=== PATIENT | male | born 1965 | race African-American/Black ===

== ENCOUNTER 2017-02-26 16:38 | Emergency (ER) | payer MEDICAID ==
[~2017-02-26] VITALS: Ht 177.8 cm; Wt 73.0 kg
[~2017-02-26 16:38] MED LIST: ASPI-1035 PO; HYDR25TA PO; KEPP500 PO; LISI-604 PO; LISI10TA5 PO; TRAM50TA73 PO
[2017-02-26] MEDS ORDERED: CLONIDINE 0.2MG TABLET PO ONE (17:45)
[2017-02-26] MEDS ORDERED: MORPHINE SULFATE 2 MG/ML CPJ (NOT FOR IM USE) IV ONE (17:45)
[2017-02-26 18:09] LABS: BASOPHILS % 0.6 % (0.0-2.0); EOSINOPHILS % 0.1 % (0.0-5.0); HEMATOCRIT. 49.5 % (42.0-52.0); HEMOGLOBIN. 16.4 g/dL (14.0-18.0); LYMPHOCYTES % 7.4 % (20.0-50.0); MEAN CORPUSCULAR HEMOGLOBIN 30.1 pg (28.0-32.0); MEAN CORPUSCULAR VOLUME 91.1 fL (80.0-94.0); MEAN PLATELET VOLUME 7.8 fl (7.4-10.4); MONOCYTES % 2.6 % (2.0-8.0); NEUTROPHILS % 89.3 % (40.0-76.0); PLATELET 280 x1000/uL (130-400); RED BLOOD CELL COUNT 5.44 mill/uL (4.7-6.1); RED CELL DISTRIBUTION WIDTH 13.8 % (11.6-14.6)
[2017-02-26 18:12] LABS: CHLORIDE 101 mEq/L (98-107); INDEX HEMOLYSI 1 (1-3); INDEX ICTERIC 1 (1-4); INDEX LIPEMIC 1 (1-3)
[2017-02-26 18:20] LABS: ALANINE AMINOTRANSFERASE 29 IU/L (13-61); ALBUMIN 4.5 g/dL (3.4-5.0); ANION GAP 17; CALCIUM 9.1 mg/dL (8.5-10.1); CARBON DIOXIDE 21 mEq/L (21-32); UREA NITROGEN BLOOD 15 mg/dL (7-21); eGFR > 60 mL/min (>60)
[2017-02-26 20:05] LABS: CLARITY URINE CLEAR (CLEAR); COLOR URINE YELLOW (YELLOW); GLUCOSE URINE TRACE (NEGATIVE); KETONES URINE 1+ (NEGATIVE); LEUKOCYTE ESTERASE URINE NEGATIVE (NEGATIVE); NITRITE URINE NEGATIVE (NEGATIVE); OCCULT BLOOD URINE 2+ (NEGATIVE); PH URINE 6.5 (4.5-8.0); PROTEIN URINE 3+ (NEGATIVE); SPECIFIC GRAVITY URINE 1.022 (1.005-1.030); UROBILINOGEN URINE 0.2 E.U./dL (0.2-1.0)
[2017-02-26 20:29] LABS: BACTERIA URINE TRACE; RBC URINE 0-2 /hpf (0-2); SQUAMOUS EPITHELIAL CELL URINE RARE /lpf (RARE/1+); WBC URINE 0-2 /hpf (0-2)
[2017-02-26 20:54] LABS: *AMPHETAMINES SCREEN URINE NEGATIVE (NEGATIVE); *BARBITURATES SCREEN URINE NEGATIVE (NEGATIVE); *BENZODIAZEPINES SCREEN URINE NEGATIVE (NEGATIVE); *COCAINE SCREEN URINE NEGATIVE (NEGATIVE); CANNABINOID URINE SCREEN PRESUMTIVE POSITIVE (NEGATIVE); ECSTASY MDMA SCREEN URINE NEGATIVE (NEGATIVE); METHADONE URINE SCREEN NEGATIVE (NEGATIVE); OPIATES URINE SCREEN PRESUMTIVE POSITIVE (NEGATIVE); PHENCYCLIDINE URINE SCREEN NEGATIVE (NEGATIVE)
[2017-02-26 21:53] VITALS: BP 139/73
== END 2017-02-26 22:07 | disposition home or self-care (01) ==
LOC: ER 16:50
DX: R11.10 Vomiting, unspecified (principal); F11.10 Opioid abuse, uncomplicated; F12.90 Cannabis use, unspecified, uncomplicated; F12.10 Cannabis abuse, uncomplicated; R31.9 Hematuria, unspecified; R80.9 Proteinuria, unspecified; E86.0 Dehydration; E87.1 Hypo-osmolality and hyponatremia; R81 Glycosuria; N17.0 Acute kidney failure with tubular necrosis; D72.829 Elevated white blood cell count, unspecified; R82.4 Acetonuria; R82.71 Bacteriuria; R79.89 Other specified abnormal findings of blood chemistry; I10 Essential (primary) hypertension; Z79.82 Long term (current) use of aspirin; Z79.1 Long term (current) use of non-steroidal anti-inflammatories (NSAID); Z79.899 Other long term (current) drug therapy
CPT/HCPCS: 36415; 71010; 74176; 80053; 80305; 81001; 83036; 83605; 85025; 87040; 87086; 93005; 96374; 99285; J2270; Z7610

== ENCOUNTER 2017-06-25 22:40 | Emergency (ER) | payer MEDICAID ==
[~2017-06-25] VITALS: Ht 165.1 cm; Wt 50.0 kg
[2017-06-25 22:40] VITALS: BP 142/92
[~2017-06-25 22:40] MED LIST changes: -ASPI-1035 PO; +ASPI-1159 PO
== END 2017-06-25 23:00 | disposition left against medical advice (07) ==
LOC: ER 22:44
DX: Z53.21 Procedure and treatment not carried out due to patient leaving prior to being seen by health care provider (principal)

== ENCOUNTER 2017-07-08 00:51 | Emergency (ER) | payer MEDICAID ==
[~2017-07-08] VITALS: Ht 157.5 cm; Wt 59.0 kg
[2017-07-08] MEDS ORDERED: DIPHENHYDRAMINE 50MG/ML VIAL IV ONE (01:30)
[2017-07-08] MEDS ORDERED: METOCLOPRAMIDE HCL 10MG/2ML VIAL IV ONE (01:30)
[2017-07-08] MEDS ORDERED: KETOROLAC 30MG/ML VIAL IV ONE (03:45)
[2017-07-08] MEDS ORDERED: ONDANSETRON HCL 4MG/2ML VIAL IV ONE (03:45)
[2017-07-08] MEDS ORDERED: HYDROCODONE/ACETAMINOPHEN 10/325MG TABLET PO ONE (04:30)
[2017-07-08 06:43] VITALS: BP 199/92
== END 2017-07-08 06:53 | disposition home or self-care (01) ==
LOC: ER 00:51
DX: G43.909 Migraine, unspecified, not intractable, without status migrainosus (principal); I10 Essential (primary) hypertension; Z79.82 Long term (current) use of aspirin
CPT/HCPCS: 70450; 96374; 96375; 99284; J1200; J1885; J2405; J2765; Z7610

== ENCOUNTER 2017-07-08 06:56 | Emergency (ER) | payer MEDICAID ==
[~2017-07-08] VITALS: Ht 165.1 cm; Wt 56.0 kg
[2017-07-08] MEDS ORDERED: METOCLOPRAMIDE HCL 10MG/2ML VIAL IV ONE (07:30)
[2017-07-08 07:39] LABS: HEMATOCRIT. 45.9 % (42.0-52.0); HEMOGLOBIN. 15.3 g/dL (14.0-18.0); MEAN CORPUSCULAR HEMOGLOBIN 29.7 pg (28.0-32.0); MEAN CORPUSCULAR VOLUME 89.3 fL (80.0-94.0); MEAN PLATELET VOLUME 7.6 fl (7.4-10.4); PLATELET 377 x1000/uL (130-400); RED BLOOD CELL COUNT 5.14 mill/uL (4.7-6.1); RED CELL DISTRIBUTION WIDTH 14.3 % (11.6-14.6)
[2017-07-08 07:47] LABS: INR 1.1
[2017-07-08 07:53] LABS: CARBON DIOXIDE 23 mEq/L (21-32); CHLORIDE 99 mEq/L (98-107)
[2017-07-08] MEDS ORDERED: ACETAMINOPHEN 325MG TABLET PO ONE (08:00)
[2017-07-08 08:23] LABS: PLATELET ESTIMATE NORMAL
[2017-07-08] MEDS ORDERED: HYDROCHLOROTHIAZIDE 12.5MG CAPSULE PO ONE (10:45)
[2017-07-08] MEDS ORDERED: KETOROLAC 30MG/ML VIAL IV ONE (10:45)
[2017-07-08 11:16] VITALS: BP 217/116
[2017-07-08] MEDS ORDERED: SODIUM CHLORIDE 0.9% 10ML VIAL ONE (12:12)
[2017-07-08] MEDS ORDERED: IOHEXOL-350 100 ML BOTTLE ONE (12:12)
== END 2017-07-08 11:27 | disposition home or self-care (01) ==
LOC: ER 06:56
DX: R51 Headache (principal); H53.8 Other visual disturbances; I10 Essential (primary) hypertension; Z79.82 Long term (current) use of aspirin; Z87.820 Personal history of traumatic brain injury
CPT/HCPCS: 36415; 70496; 80053; 85025; 85610; 93005; 96374; 96375; 99285; A4216; J1885; J2765; Q9967; Z7610

== ENCOUNTER 2017-07-31 05:20 | Emergency (ER) | payer MEDICAID ==
[~2017-07-31] VITALS: Ht 170.2 cm; Wt 75.0 kg
[2017-07-31] MEDS ORDERED: SODIUM CHLORIDE 0.9% 1,000 ML IV ONE (06:24)
[2017-07-31] MEDS ORDERED: ONDANSETRON HCL 4MG/2ML VIAL IV STA (06:24)
[2017-07-31] MEDS ORDERED: MORPHINE SULFATE 4 MG/ML CPJ (NOT FOR IM USE) IV STA (06:24)
[2017-07-31 06:56] LABS: BASOPHILS % 0.7 % (0.0-2.0); EOSINOPHILS % 0.8 % (0.0-5.0); HEMATOCRIT. 41.5 % (42.0-52.0); LYMPHOCYTES % 10.1 % (20.0-50.0); MEAN CORPUSCULAR HEMOGLOBIN 30.5 pg (28.0-32.0); MEAN CORPUSCULAR VOLUME 90.6 fL (80.0-94.0); MEAN PLATELET VOLUME 7.5 fl (7.4-10.4); MONOCYTES % 4.8 % (2.0-8.0); NEUTROPHILS % 83.6 % (40.0-76.0); PLATELET 249 x1000/uL (130-400); RED BLOOD CELL COUNT 4.58 mill/uL (4.7-6.1); RED CELL DISTRIBUTION WIDTH 14.6 % (11.6-14.6)
[2017-07-31 07:13] LABS: CARBON DIOXIDE 27 mEq/L (21-32); CHLORIDE 108 mEq/L (98-107); TROPONIN I < 0.02 ng/mL (0.00-0.04)
[2017-07-31 07:24] LABS: PROTHROMBIN TIME 10.7 sec (9.4-11.6)
[2017-07-31] MEDS ORDERED: CLONIDINE 0.1MG TABLET PO ONE (07:45)
[2017-07-31] MEDS ORDERED: KETOROLAC 30MG/ML VIAL IV ONE (08:30)
[2017-07-31] MEDS ORDERED: METOCLOPRAMIDE HCL 10MG/2ML VIAL IV ONE (09:00)
[2017-07-31] MEDS ORDERED: DIPHENHYDRAMINE 50MG/ML VIAL IV ONE (09:00)
[2017-07-31 12:15] VITALS: BP 190/98
== END 2017-07-31 12:28 | disposition home or self-care (01) ==
LOC: ER 05:20 → CANBEDREQ 12:27 → ER 12:28
DX: I10 Essential (primary) hypertension (principal); R51 Headache; Z79.82 Long term (current) use of aspirin
CPT/HCPCS: 36415; 70450; 80053; 83605; 83690; 84484; 85025; 85610; 93005; 96361; 96374; 96375; 99285; G0482; J1200; J1885; J2270; J2405; J2765; J7030; Z7610

== ENCOUNTER 2017-08-02 00:20 | Inpatient (IN) | payer MEDICAID ==
[~2017-08-02] VITALS: Ht 162.6 cm; Wt 59.0 kg
[2017-08-02] MEDS ORDERED: SODIUM CHLORIDE 0.9% 1,000 ML IV ONE (00:52)
[2017-08-02] MEDS ORDERED: FAMOTIDINE 20MG/2ML VIAL IV STA (00:52)
[2017-08-02] MEDS ORDERED: MORPHINE SULFATE 4 MG/ML CPJ (NOT FOR IM USE) IV STA (00:52)
[2017-08-02] MEDS ORDERED: METOCLOPRAMIDE HCL 10MG/2ML VIAL IV STA (00:52)
[2017-08-02 01:14] LABS: BASOPHILS % 0.8 % (0.0-2.0); EOSINOPHILS % 1.6 % (0.0-5.0); HEMOGLOBIN. 14.3 g/dL (14.0-18.0); MEAN CORPUSCULAR HEMOGLOBIN 30.8 pg (28.0-32.0); MEAN CORPUSCULAR VOLUME 90.8 fL (80.0-94.0); MEAN PLATELET VOLUME 7.4 fl (7.4-10.4); MONOCYTES % 8.7 % (2.0-8.0); NEUTROPHILS % 69.9 % (40.0-76.0); PLATELET 234 x1000/uL (130-400); RED BLOOD CELL COUNT 4.63 mill/uL (4.7-6.1); RED CELL DISTRIBUTION WIDTH 14.3 % (11.6-14.6)
[2017-08-02 01:24] LABS: CHLORIDE 101 mEq/L (98-107)
[2017-08-02 01:33] LABS: CARBON DIOXIDE 25 mEq/L (21-32)
[2017-08-02] MEDS ORDERED: SODIUM CHLORIDE 0.9% 1,000 ML IV SCH (02:24)
[2017-08-02] MEDS ORDERED: ACETAMINOPHEN 325MG TABLET PO PRN (02:30)
[2017-08-02] MEDS ORDERED: IBUPROFEN 600MG TABLET PO PRN (02:30)
[2017-08-02] MEDS ORDERED: LISINOPRIL 20MG TABLET PO ONE (03:15)
[2017-08-02 10:12] VITALS: BP 129/74
[2017-08-02] MEDS ORDERED: ONDANSETRON HCL 4MG/2ML VIAL IV PRN (11:00)
[2017-08-02] MEDS ORDERED: ACETAMINOPHEN 650MG SUPP PR PRN (11:00)
[2017-08-02] MEDS ORDERED: DIPHENHYDRAMINE 50MG/ML VIAL IV PRN (11:00)
[2017-08-02 12:00] VITALS: BP 124/69
[2017-08-02] MEDS: ENOXAPARIN 40MG/0.4ML SYR SUBCUT SCH (12:05)
[2017-08-02] MEDS: DEXT 5%/0.45% NACL 1000ML 1,000 ML IV SCH (12:05)
[2017-08-02 16:00] VITALS: BP 128/67
[2017-08-02] MEDS: HYDROMORPHONE HCL/PF 2MG/ML CPJ IV PRN ×2 (18:23→23:35)
[2017-08-02 20:00] VITALS: BP 117/54
[2017-08-03] VITALS: BP 125/62
[2017-08-03] MEDS: DEXT 5%/0.45% NACL 1000ML 1,000 ML IV SCH (02:53)
[2017-08-03 04:00] VITALS: BP 115/60
[2017-08-03] MEDS: HYDROMORPHONE HCL/PF 2MG/ML CPJ IV PRN ×2 (06:26→10:56)
[2017-08-03 07:34] LABS: CARBON DIOXIDE 26 mEq/L (21-32); CHLORIDE 106 mEq/L (98-107)
[2017-08-03 07:43] LABS: HDL CHOLESTEROL 51 mg/dL (40-59); LDL CHOLESTEROL 77 mg/dL (5-100); T4 FREE 1.22 ng/dL (0.76-1.46)
[2017-08-03 07:56] LABS: BASOPHILS % 0.9 % (0.0-2.0); EOSINOPHILS % 3.3 % (0.0-5.0); HEMATOCRIT. 38.7 % (42.0-52.0); HEMOGLOBIN. 12.8 g/dL (14.0-18.0); LYMPHOCYTES % 42.4 % (20.0-50.0); MEAN CORPUSCULAR HEMOGLOBIN 30.2 pg (28.0-32.0); MEAN CORPUSCULAR VOLUME 90.9 fL (80.0-94.0); MEAN PLATELET VOLUME 7.9 fl (7.4-10.4); MONOCYTES % 10.7 % (2.0-8.0); NEUTROPHILS % 42.7 % (40.0-76.0); PLATELET 203 x1000/uL (130-400); RED BLOOD CELL COUNT 4.25 mill/uL (4.7-6.1); RED CELL DISTRIBUTION WIDTH 14.1 % (11.6-14.6)
[2017-08-03 08:00] VITALS: BP 145/55
[2017-08-03] MEDS: ENOXAPARIN 40MG/0.4ML SYR SUBCUT SCH (10:57)
[2017-08-03 12:00] VITALS: BP 119/56
[2017-08-03 12:57] VITALS: BP 119/56
== END 2017-08-03 13:57 | disposition home or self-care (01) | DRG 282 ==
LOC: ER 00:20 → 6EST 03:36 → EDBEDREQTM 03:37 → EDBEDREQ 03:37 → ENRESERV 07:51
PROVIDERS: ADMIT Hospitalist; ATTEND Hospitalist
DX: K85.90 Acute pancreatitis without necrosis or infection, unspecified (principal); N17.9 Acute kidney failure, unspecified; I10 Essential (primary) hypertension; Z79.82 Long term (current) use of aspirin; Z79.899 Other long term (current) drug therapy
CPT/HCPCS: 36415; 74176; 80053; 80061; 83690; 84439; 84443; 85025; 93970; 96374; 96375; 99285; J1170; J1650; J2270; J2765; J3490; J7030; J7040

== ENCOUNTER 2017-08-07 08:18 | Inpatient (IN) | payer MEDICAID ==
[~2017-08-07] VITALS: Ht 162.6 cm; Wt 59.0 kg
[2017-08-07] MEDS ORDERED: MORPHINE SULFATE 4 MG/ML CPJ (NOT FOR IM USE) IV STA (09:17)
[2017-08-07] MEDS ORDERED: ONDANSETRON HCL 4MG/2ML VIAL IV STA (09:17)
[2017-08-07] MEDS ORDERED: SODIUM CHLORIDE 0.9% 1,000 ML IV ONE (09:17)
[2017-08-07] MEDS ORDERED: HYDRALAZINE 20MG/ML VIAL IV ONE (09:30)
[2017-08-07 09:37] LABS: CLARITY URINE CLEAR (CLEAR); COLOR URINE YELLOW (YELLOW); GLUCOSE URINE TRACE (NEGATIVE); KETONES URINE NEGATIVE (NEGATIVE); LEUKOCYTE ESTERASE URINE NEGATIVE (NEGATIVE); NITRITE URINE NEGATIVE (NEGATIVE); OCCULT BLOOD URINE NEGATIVE (NEGATIVE); PH URINE 6.5 (4.5-8.0); PROTEIN URINE NEGATIVE (NEGATIVE); SPECIFIC GRAVITY URINE 1.014 (1.005-1.030); UROBILINOGEN URINE 0.2 E.U./dL (0.2-1.0)
[2017-08-07 10:00] LABS: *AMPHETAMINES SCREEN URINE NEGATIVE (NEGATIVE); *BARBITURATES SCREEN URINE NEGATIVE (NEGATIVE); *BENZODIAZEPINES SCREEN URINE NEGATIVE (NEGATIVE); *COCAINE SCREEN URINE NEGATIVE (NEGATIVE); CANNABINOID URINE SCREEN PRESUMTIVE POSITIVE (NEGATIVE); METHADONE URINE SCREEN NEGATIVE (NEGATIVE); OPIATES URINE SCREEN NEGATIVE (NEGATIVE); PHENCYCLIDINE URINE SCREEN NEGATIVE (NEGATIVE)
[2017-08-07 10:06] LABS: BASOPHILS % 0.9 % (0.0-2.0); EOSINOPHILS % 0.9 % (0.0-5.0); HEMATOCRIT. 43.9 % (42.0-52.0); HEMOGLOBIN. 14.7 g/dL (14.0-18.0); LYMPHOCYTES % 10.8 % (20.0-50.0); MEAN CORPUSCULAR HEMOGLOBIN 30.5 pg (28.0-32.0); MEAN CORPUSCULAR VOLUME 90.8 fL (80.0-94.0); MEAN PLATELET VOLUME 8.1 fl (7.4-10.4); MONOCYTES % 4.9 % (2.0-8.0); NEUTROPHILS % 82.5 % (40.0-76.0); PLATELET 237 x1000/uL (130-400); RED BLOOD CELL COUNT 4.83 mill/uL (4.7-6.1); RED CELL DISTRIBUTION WIDTH 14.2 % (11.6-14.6)
[2017-08-07 10:11] LABS: PARTIAL THROMBOPLASTIN TIME 25.9 sec (23.4-31.0); PROTHROMBIN TIME 10.7 sec (9.4-11.6)
[2017-08-07 10:20] LABS: CARBON DIOXIDE 25 mEq/L (21-32); CHLORIDE 108 mEq/L (98-107); CREATINE KINASE 148 IU/L (39-308); CREATINE KINASE MB FRACTION 1.9 ng/mL (0.5-3.6)
[2017-08-07] MEDS ORDERED: LORAZEPAM 2MG/ML CPJ IV ONE (11:15)
[2017-08-07] MEDS ORDERED: LORAZEPAM 2MG/ML CPJ ONE (11:17)
[2017-08-07] MEDS ORDERED: LEVETIRACETAM 500MG PREMIX 100 ML IV ONE (11:30)
[2017-08-07] MEDS ORDERED: LABETALOL 5MG/ML SYR 20 MG/4 ML SYRINGE IV ONE ×2 (11:30→12:15)
[2017-08-07 14:00] VITALS: BP 182/107
[2017-08-07] MEDS ORDERED: ACETAMINOPHEN 325MG TABLET PO PRN (15:15)
[2017-08-07] MEDS ORDERED: GUAIFENESIN 200MG/10ML SUGAR FREE UDC PO PRN (15:15)
[2017-08-07] MEDS ORDERED: MAGNESIUM/ALUMINUM HYDROXIDE/SIMETHICONE 30ML UDC PO PRN (15:15)
[2017-08-07] MEDS ORDERED: CLONIDINE 0.1MG TABLET PO PRN (15:15)
[2017-08-07] MEDS ORDERED: ACETAMINOPHEN 650MG/20.3ML UDC GT PRN (15:15)
[2017-08-07] MEDS ORDERED: NA PHOS,M-B/NA PHOS,DI-BA ENEMA 118ML PR PRN (15:15)
[2017-08-07] MEDS ORDERED: ENOXAPARIN 40MG/0.4ML SYR SUBCUT SCH (15:15)
[2017-08-07] MEDS ORDERED: ONDANSETRON HCL 4MG/2ML VIAL IV PRN ×2 (15:15)
[2017-08-07] MEDS ORDERED: DOCUSATE SODIUM 100MG CAPSULE PO PRN (15:15)
[2017-08-07] MEDS ORDERED: LORAZEPAM 2MG/ML CPJ IV PRN (15:15)
[2017-08-07] MEDS ORDERED: ACETAMINOPHEN 650MG SUPP PR PRN (15:15)
[2017-08-07] MEDS ORDERED: DIPHENHYDRAMINE 50MG/ML VIAL IV PRN (15:15)
[2017-08-07] MEDS ORDERED: IPRATROPIUM/ALBUTEROL 0.5-3(2.5)MG/3ML NEB INH PRN (15:15)
[2017-08-07 16:00] VITALS: BP 186/107
[2017-08-07] MEDS: SODIUM CHLORIDE 0.9% 1,000 ML IV SCH ×2 (17:00→17:18)
[2017-08-07] MEDS: SODIUM CHLORIDE 0.9% INJ 3ML FLUSH IVF SCH (17:05)
[2017-08-07 20:00] VITALS: BP 127/67
[2017-08-07] MEDS: HYDROCODONE/ACETAMINOPHEN 5/325MG TABLET PO PRN (20:36)
[2017-08-08] VITALS: BP 114/66
[2017-08-08] MEDS: HYDROCODONE/ACETAMINOPHEN 5/325MG TABLET PO PRN (01:10)
[2017-08-08] MEDS: SODIUM CHLORIDE 0.9% INJ 3ML FLUSH IVF SCH (02:13)
[2017-08-08 04:00] VITALS: BP 126/60
[2017-08-08 06:18] LABS: BASOPHILS % 0.5 % (0.0-2.0); EOSINOPHILS % 1.9 % (0.0-5.0); HEMATOCRIT. 36.6 % (42.0-52.0); HEMOGLOBIN. 12.4 g/dL (14.0-18.0); LYMPHOCYTES % 22.4 % (20.0-50.0); MEAN CORPUSCULAR HEMOGLOBIN 30.8 pg (28.0-32.0); MEAN CORPUSCULAR VOLUME 90.6 fL (80.0-94.0); MEAN PLATELET VOLUME 8.1 fl (7.4-10.4); MONOCYTES % 6.6 % (2.0-8.0); NEUTROPHILS % 68.6 % (40.0-76.0); PLATELET 218 x1000/uL (130-400); RED BLOOD CELL COUNT 4.04 mill/uL (4.7-6.1); RED CELL DISTRIBUTION WIDTH 13.9 % (11.6-14.6)
[2017-08-08 06:31] LABS: CARBON DIOXIDE 28 mEq/L (21-32); CHLORIDE 106 mEq/L (98-107)
[2017-08-08 06:32] LABS: HDL CHOLESTEROL 55 mg/dL (40-59); LDL CHOLESTEROL 54 mg/dL (5-100)
== END 2017-08-08 09:13 | disposition left against medical advice (07) | DRG 199 ==
LOC: ER 08:46 → EDBEDREQTM 10:51 → EDBEDREQ 10:51 → ENRESERV 11:19 → 7WST 11:19
PROVIDERS: ADMIT Family Medicine; ATTEND Family Medicine
DX: I16.0 Hypertensive urgency (principal); G40.919 Epilepsy, unspecified, intractable, without status epilepticus; R10.9 Unspecified abdominal pain; R11.2 Nausea with vomiting, unspecified; I10 Essential (primary) hypertension; Z53.21 Procedure and treatment not carried out due to patient leaving prior to being seen by health care provider; F12.129 Cannabis abuse with intoxication, unspecified; Z79.82 Long term (current) use of aspirin; Z79.899 Other long term (current) drug therapy
CPT/HCPCS: 36415; 74000; 74022; 80053; 80061; 80305; 81001; 82550; 82553; 82962; 83690; 85025; 85610; 85730; 93005; 96361; 96365; 96375; 96376; 99291; J0360; J1650; J1953; J2060; J2270; J2405; J3490; J7030; J7050

== ENCOUNTER 2017-11-01 12:54 | Emergency (ER) | payer MEDICAID ==
[~2017-11-01] VITALS: Ht 170.2 cm; Wt 70.0 kg
[~2017-11-01 12:54] MED LIST changes: -TRAM50TA73 PO; +TRAM50TA94 PO
[2017-11-01] MEDS ORDERED: SODIUM CHLORIDE 0.9% 1,000 ML IV ONE (13:38)
[2017-11-01] MEDS ORDERED: ONDANSETRON HCL 4MG/2ML VIAL IV STA (13:38)
[2017-11-01] MEDS ORDERED: DIAZEPAM 5 MG/ML 2ML CPJ IV ONE (13:45)
[2017-11-01 14:12] LABS: BASOPHILS % 0.5 % (0.0-2.0); EOSINOPHILS % 0.1 % (0.0-5.0); HEMOGLOBIN. 15.3 g/dL (14.0-18.0); LYMPHOCYTES % 9.5 % (20.0-50.0); MEAN CORPUSCULAR HEMOGLOBIN 30.8 pg (28.0-32.0); MEAN CORPUSCULAR VOLUME 90.7 fL (80.0-94.0); MONOCYTES % 3.5 % (2.0-8.0); NEUTROPHILS % 86.4 % (40.0-76.0); PLATELET 295 x1000/uL (130-400); RED BLOOD CELL COUNT 4.96 mill/uL (4.7-6.1); RED CELL DISTRIBUTION WIDTH 13.2 % (11.6-14.6)
[2017-11-01 14:19] LABS: CHLORIDE 106 mEq/L (98-107)
[2017-11-01 14:22] LABS: PROTHROMBIN TIME 10.8 sec (9.4-11.6)
[2017-11-01 14:29] LABS: CARBON DIOXIDE 24 mEq/L (21-32)
[2017-11-01] MEDS ORDERED: LORAZEPAM 2MG/ML CPJ IV ONE (14:30)
[2017-11-01] MEDS ORDERED: METOCLOPRAMIDE HCL 10MG/2ML VIAL IV ONE (14:45)
[2017-11-01] MEDS ORDERED: DIPHENHYDRAMINE 50MG/ML VIAL IV ONE (14:45)
[2017-11-01 15:24] LABS: CLARITY URINE CLEAR (CLEAR); COLOR URINE YELLOW (YELLOW); KETONES URINE NEGATIVE (NEGATIVE); LEUKOCYTE ESTERASE URINE NEGATIVE (NEGATIVE); NITRITE URINE NEGATIVE (NEGATIVE); OCCULT BLOOD URINE NEGATIVE (NEGATIVE); PH URINE 8.5 (4.5-8.0); PROTEIN URINE 1+ (NEGATIVE); SPECIFIC GRAVITY URINE 1.016 (1.005-1.030); UROBILINOGEN URINE 0.2 E.U./dL (0.2-1.0)
[2017-11-01 15:37] LABS: *AMPHETAMINES SCREEN URINE NEGATIVE (NEGATIVE); *BARBITURATES SCREEN URINE NEGATIVE (NEGATIVE); *BENZODIAZEPINES SCREEN URINE NEGATIVE (NEGATIVE); *COCAINE SCREEN URINE NEGATIVE (NEGATIVE); CANNABINOID URINE SCREEN PRESUMTIVE POSITIVE (NEGATIVE); METHADONE URINE SCREEN NEGATIVE (NEGATIVE); OPIATES URINE SCREEN PRESUMTIVE POSITIVE (NEGATIVE); PHENCYCLIDINE URINE SCREEN NEGATIVE (NEGATIVE)
[2017-11-01] MEDS ORDERED: KETOROLAC 15MG/ML VIAL IV ONE (16:00)
[2017-11-01] MEDS ORDERED: MORPHINE SULFATE 4 MG/ML CPJ (NOT FOR IM USE) IV ONE (16:00)
[2017-11-01 18:08] VITALS: BP 182/91
== END 2017-11-01 18:12 | disposition home or self-care (01) ==
LOC: ER 12:56
DX: R51 Headache (principal); R11.2 Nausea with vomiting, unspecified; R19.7 Diarrhea, unspecified; I10 Essential (primary) hypertension; G89.29 Other chronic pain; R10.84 Generalized abdominal pain; R90.82 White matter disease, unspecified; G31.9 Degenerative disease of nervous system, unspecified; G40.909 Epilepsy, unspecified, not intractable, without status epilepticus; Z87.820 Personal history of traumatic brain injury; F12.90 Cannabis use, unspecified, uncomplicated; Z79.891 Long term (current) use of opiate analgesic; Z79.82 Long term (current) use of aspirin; R73.9 Hyperglycemia, unspecified
CPT/HCPCS: 36415; 70450; 80053; 80305; 81001; 83690; 85025; 85610; 93005; 96361; 96374; 96375; 99285; J1200; J1885; J2060; J2270; J2405; J2765; J7030; Z7610

== ENCOUNTER 2018-05-23 04:39 | Emergency (ER) | payer MEDICAID ==
[~2018-05-23] VITALS: Ht 165.1 cm; Wt 60.0 kg
[~2018-05-23 04:39] MED LIST changes: -LISI10TA5 PO
[2018-05-23] MEDS ORDERED: SODIUM CHLORIDE 0.9% 1,000 ML IV ONE (05:30)
[2018-05-23] MEDS ORDERED: METOCLOPRAMIDE HCL 10MG/2ML VIAL IV ONE (05:30)
[2018-05-23 06:35] LABS: BASOPHILS % 0.8 % (0.0-2.0); EOSINOPHILS % 0.4 % (0.0-5.0); HEMATOCRIT. 46.5 % (42.0-52.0); HEMOGLOBIN. 15.7 g/dL (14.0-18.0); LYMPHOCYTES % 10.6 % (20.0-50.0); MEAN CORPUSCULAR HEMOGLOBIN 30.7 pg (28.0-32.0); MEAN CORPUSCULAR VOLUME 91.1 fL (80.0-94.0); MONOCYTES % 4.9 % (2.0-8.0); NEUTROPHILS % 83.3 % (40.0-76.0); PLATELET 296 x1000/uL (130-400); RED BLOOD CELL COUNT 5.11 mill/uL (4.7-6.1); RED CELL DISTRIBUTION WIDTH 13.3 % (11.6-14.6)
[2018-05-23] MEDS ORDERED: ONDANSETRON HCL 4MG/2ML VIAL IV STA (06:49)
[2018-05-23] MEDS ORDERED: MORPHINE SULFATE 2 MG/ML CPJ (NOT FOR IM USE) IV ONE (07:00)
[2018-05-23 07:29] LABS: CLARITY URINE CLEAR (CLEAR); COLOR URINE YELLOW (YELLOW); KETONES URINE NEGATIVE (NEGATIVE); LEUKOCYTE ESTERASE URINE NEGATIVE (NEGATIVE); NITRITE URINE NEGATIVE (NEGATIVE); OCCULT BLOOD URINE NEGATIVE (NEGATIVE); PROTEIN URINE NEGATIVE (NEGATIVE); SPECIFIC GRAVITY URINE 1.021 (1.005-1.030); UROBILINOGEN URINE 0.2 E.U./dL (0.2-1.0)
[2018-05-23 07:46] LABS: *AMPHETAMINES SCREEN URINE NEGATIVE (NEGATIVE); *BARBITURATES SCREEN URINE NEGATIVE (NEGATIVE); CANNABINOID URINE SCREEN PRESUMTIVE POSITIVE (NEGATIVE); METHADONE URINE SCREEN NEGATIVE (NEGATIVE); OPIATES URINE SCREEN NEGATIVE (NEGATIVE); PHENCYCLIDINE URINE SCREEN NEGATIVE (NEGATIVE)
[2018-05-23 07:47] LABS: *BENZODIAZEPINES SCREEN URINE NEGATIVE (NEGATIVE); *COCAINE SCREEN URINE NEGATIVE (NEGATIVE)
[2018-05-23] MEDS ORDERED: LISINOPRIL 20MG TABLET PO ONE (09:15)
[2018-05-23] MEDS ORDERED: HYDROCHLOROTHIAZIDE 25MG TABLET PO ONE (09:15)
[2018-05-23 09:48] LABS: CHLORIDE 106 mEq/L (98-107)
[2018-05-23 09:59] LABS: INR 1.1; PROTHROMBIN TIME 11.2 sec (9.4-11.6)
[2018-05-23 10:05] LABS: CREATINE KINASE MB FRACTION 2.2 ng/mL (0.5-3.6)
[2018-05-23] MEDS ORDERED: VANCOMYCIN 1 G PREMIX 200 ML IV SCH (11:30)
[2018-05-23 14:05] VITALS: BP 132/74
== END 2018-05-23 14:21 | disposition home or self-care (01) ==
LOC: ER 06:18 → EDBEDREQTM 09:45 → EDBEDREQ 09:45 → CANRESERV 10:22 → ENRESERV 10:22 → ER 14:21 → CANBEDREQ 18:12
DX: R10.9 Unspecified abdominal pain (principal); I10 Essential (primary) hypertension
CPT/HCPCS: 36415; 74176; 80048; 80053; 80305; 81003; 82553; 83690; 83880; 85025; 85610; 96361; 96374; 96375; 99285; J2270; J2405; J2765; J7030

== ENCOUNTER 2018-07-09 09:02 | Emergency (ER) | payer MEDICAID ==
[~2018-07-09] VITALS: Ht 165.1 cm; Wt 64.0 kg
[2018-07-09 09:23] VITALS: BP 152/86
== END 2018-07-09 11:00 | disposition left against medical advice (07) ==
LOC: ER 10:20
DX: Z53.21 Procedure and treatment not carried out due to patient leaving prior to being seen by health care provider (principal); I10 Essential (primary) hypertension; G43.909 Migraine, unspecified, not intractable, without status migrainosus

== ENCOUNTER 2018-10-15 10:48 | Emergency (ER) | payer MEDICAID ==
[~2018-10-15] VITALS: Ht 182.9 cm; Wt 96.0 kg
[2018-10-15 10:54] VITALS: BP 196/109
== END 2018-10-15 14:31 | disposition left against medical advice (07) ==
LOC: ER 10:48
DX: Z53.21 Procedure and treatment not carried out due to patient leaving prior to being seen by health care provider (principal)

== ENCOUNTER 2018-10-15 14:38 | Inpatient (IN) | payer MEDICAID ==
[~2018-10-15] VITALS: Ht 172.7 cm; Wt 59.9 kg
[2018-10-15] MEDS ORDERED: MORPHINE SULFATE 4 MG/ML CPJ (NOT FOR IM USE) IV ONE (17:45)
[2018-10-15] MEDS ORDERED: ONDANSETRON HCL 4MG/2ML INJ IV ONE (17:45)
[2018-10-15] MEDS ORDERED: ASPIRIN 81MG TABLET PO ONE (17:45)
[2018-10-15] MEDS ORDERED: HYDRALAZINE 20MG/ML VIAL IV ONE (18:15)
[2018-10-15 18:37] LABS: BASOPHILS % 0.6 % (0.0-2.0); HEMATOCRIT. 49.1 % (42.0-52.0); HEMOGLOBIN. 16.7 g/dL (14.0-18.0); LYMPHOCYTES % 4.7 % (20.0-50.0); MEAN CORPUSCULAR HEMOGLOBIN 30.9 pg (28.0-32.0); MEAN CORPUSCULAR VOLUME 90.6 fL (80.0-94.0); MEAN PLATELET VOLUME 8.4 fl (7.4-10.4); MONOCYTES % 3.3 % (2.0-8.0); NEUTROPHILS % 91.4 % (40.0-76.0); PLATELET 310 x1000/uL (130-400); RED BLOOD CELL COUNT 5.42 mill/uL (4.7-6.1); RED CELL DISTRIBUTION WIDTH 13.3 % (11.6-14.6)
[2018-10-15 18:43] LABS: CHLORIDE 102 mEq/L (98-107)
[2018-10-15 18:46] LABS: ETHANOL BLOOD < 10 mg/dL
[2018-10-15] MEDS ORDERED: SODIUM CHLORIDE 0.9% 1,000 ML IV ONE (19:30)
[2018-10-15] MEDS ORDERED: FAMOTIDINE 20MG/2ML VIAL IV ONE (19:30)
[2018-10-15] MEDS ORDERED: MORPHINE SULFATE 2 MG/ML CPJ (NOT FOR IM USE) IV ONE (19:30)
[2018-10-15 19:50] LABS: CLARITY URINE CLEAR (CLEAR); COLOR URINE YELLOW (YELLOW); KETONES URINE 2+ (NEGATIVE); LEUKOCYTE ESTERASE URINE NEGATIVE (NEGATIVE); NITRITE URINE NEGATIVE (NEGATIVE); OCCULT BLOOD URINE TRACE (NEGATIVE); PROTEIN URINE 2+ (NEGATIVE); SPECIFIC GRAVITY URINE 1.021 (1.005-1.030); UROBILINOGEN URINE 0.2 E.U./dL (0.2-1.0)
[2018-10-15 20:00] LABS: *AMPHETAMINES SCREEN URINE NEGATIVE (NEGATIVE)
[2018-10-15 20:01] LABS: *BARBITURATES SCREEN URINE NEGATIVE (NEGATIVE); *BENZODIAZEPINES SCREEN URINE NEGATIVE (NEGATIVE); *COCAINE SCREEN URINE NEGATIVE (NEGATIVE); METHADONE URINE SCREEN NEGATIVE (NEGATIVE); OPIATES URINE SCREEN PRESUMTIVE POSITIVE (NEGATIVE); PHENCYCLIDINE URINE SCREEN NEGATIVE (NEGATIVE)
[2018-10-15 20:02] LABS: CANNABINOID URINE SCREEN PRESUMTIVE POSITIVE (NEGATIVE)
[2018-10-15] MEDS ORDERED: KETOROLAC 15MG/ML VIAL IV ONE (22:00)
[2018-10-15] MEDS ORDERED: LISINOPRIL 10MG TABLET PO ONE (22:00)
[2018-10-16] VITALS (18 sets, daily range): BP systolic 99–165; BP diastolic 50–107
[2018-10-16] MEDS ORDERED: NITROGLYCERIN OINT 1GM/INCH UDPKT TD ONE (00:30)
[2018-10-16] MEDS ORDERED: ACETAMINOPHEN 500MG TABLET PO ONE (01:15)
[2018-10-16] MEDS ORDERED: HYDRALAZINE 20MG/ML VIAL IV PRN (05:00)
[2018-10-16] MEDS ORDERED: ACETAMINOPHEN 325MG TABLET PO PRN ×2 (05:00→09:45)
[2018-10-16] MEDS ORDERED: CLONIDINE 0.2MG TABLET PO PRN (05:00)
[2018-10-16] MEDS ORDERED: HYDROCODONE/ACETAMINOPHEN 5/325MG TABLET PO PRN ×2 (05:00→09:45)
[2018-10-16] MEDS ORDERED: GUAIFENESIN 200MG/10ML SUGAR FREE UDC PO PRN (09:45)
[2018-10-16] MEDS ORDERED: DIPHENHYDRAMINE 50MG/ML VIAL IV PRN (09:45)
[2018-10-16] MEDS ORDERED: NA PHOS,M-B/NA PHOS,DI-BA ENEMA 118ML PR PRN (09:45)
[2018-10-16] MEDS ORDERED: ONDANSETRON HCL 4MG/2ML INJ IV PRN (09:45)
[2018-10-16] MEDS ORDERED: DOCUSATE SODIUM 100MG CAPSULE PO PRN (09:45)
[2018-10-16] MEDS ORDERED: PANTOPRAZOLE 40MG DR TABLET PO SCH (09:45)
[2018-10-16] MEDS ORDERED: IPRATROPIUM/ALBUTEROL 0.5-3(2.5)MG/3ML NEB INH PRN (09:45)
[2018-10-16] MEDS ORDERED: CLONIDINE 0.1MG TABLET PO PRN (09:45)
[2018-10-16] MEDS ORDERED: ACETAMINOPHEN 650MG SUPP PR PRN (09:45)
[2018-10-16] MEDS ORDERED: MAGNESIUM/ALUMINUM HYDROXIDE/SIMETHICONE 30ML UDC PO PRN (09:45)
[2018-10-16] MEDS ORDERED: METOPROLOL TARTRATE 25MG TABLET PO SCH (09:45)
[2018-10-16] MEDS ORDERED: ACETAMINOPHEN 650MG/20.3ML UDC GT PRN (09:45)
[2018-10-16] MEDS ORDERED: ENOXAPARIN 40MG/0.4ML SYR SUBCUT SCH (09:45)
[2018-10-16] MEDS ORDERED: AMLODIPINE 10MG TABLET PO SCH (09:45)
[2018-10-16] MEDS ORDERED: SODIUM CHLORIDE 0.9% INJ 3ML FLUSH IVF SCH (14:00)
[2018-10-16 16:43] LABS: BASOPHILS % 0.4 % (0.0-2.0); EOSINOPHILS % 0.4 % (0.0-5.0); HEMATOCRIT. 45.9 % (42.0-52.0); HEMOGLOBIN. 15.3 g/dL (14.0-18.0); LYMPHOCYTES % 14.6 % (20.0-50.0); MEAN CORPUSCULAR HEMOGLOBIN 30.3 pg (28.0-32.0); MEAN CORPUSCULAR VOLUME 90.8 fL (80.0-94.0); MONOCYTES % 6.8 % (2.0-8.0); NEUTROPHILS % 77.8 % (40.0-76.0); PLATELET 299 x1000/uL (130-400); RED BLOOD CELL COUNT 5.06 mill/uL (4.7-6.1); RED CELL DISTRIBUTION WIDTH 13.5 % (11.6-14.6)
[2018-10-16 16:47] LABS: INR 1.1; PROTHROMBIN TIME 10.7 sec (9.1-11.1)
[2018-10-16 16:55] LABS: CHLORIDE 102 mEq/L (98-107)
[2018-10-16 17:04] LABS: CREATINE KINASE 552 IU/L (39-308)
[2018-10-16 17:11] LABS: CREATINE KINASE MB FRACTION 4.1 ng/mL (0.5-3.6)
== END 2018-10-16 16:30 | disposition left against medical advice (07) | DRG 199 ==
LOC: ER 14:38 → 5EST 10-16 00:21 → EDBEDREQTM 10-16 00:22 → EDBEDREQ 10-16 00:22 → ENRESERV 10-16 02:18
PROVIDERS: ADMIT Family Medicine; ATTEND Family Medicine
DX: I16.1 Hypertensive emergency (principal); I67.4 Hypertensive encephalopathy; G40.909 Epilepsy, unspecified, not intractable, without status epilepticus; G43.909 Migraine, unspecified, not intractable, without status migrainosus; R07.89 Other chest pain; Z53.21 Procedure and treatment not carried out due to patient leaving prior to being seen by health care provider; F11.10 Opioid abuse, uncomplicated; I10 Essential (primary) hypertension; J40 Bronchitis, not specified as acute or chronic; Z91.14 Patient's other noncompliance with medication regimen; Z90.01 Acquired absence of eye; Z79.899 Other long term (current) drug therapy; Z83.3 Family history of diabetes mellitus
CPT/HCPCS: 36415; 71045; 80305; 82550; 82553; 83880; 84484; 93005; 93306; 93970; 96374; 96375; 99285; G0482; J0360; J1885; J2270; J2405; J3490; J7030; J7050

== ENCOUNTER 2019-08-22 06:26 | Emergency (ER) | payer MEDICAID ==
[~2019-08-22] VITALS: Ht 167.6 cm; Wt 68.0 kg
[~2019-08-22 06:26] MED LIST changes: -ASPI-1159 PO; +ASPI-1393 PO
[2019-08-22] MEDS ORDERED: ONDANSETRON HCL 4MG TABLET PO ONE (07:00)
[2019-08-22] MEDS ORDERED: ACETAMINOPHEN 325MG TABLET PO ONE (07:00)
[2019-08-22 09:03] VITALS: BP 158/89
== END 2019-08-22 09:04 | disposition home or self-care (01) ==
LOC: ER 07:09
DX: R11.2 Nausea with vomiting, unspecified (principal); R07.9 Chest pain, unspecified; R09.81 Nasal congestion; R05 Cough; R42 Dizziness and giddiness; I10 Essential (primary) hypertension; F17.200 Nicotine dependence, unspecified, uncomplicated; Z79.899 Other long term (current) drug therapy
CPT/HCPCS: 71045; 93005; 99283; Q0162

== ENCOUNTER 2019-11-22 17:26 | Inpatient (IN) | payer MEDICAID ==
[~2019-11-22] VITALS: Ht 167.6 cm; Wt 61.7 kg
[~2019-11-22 17:26] MED LIST changes: -ASPI-1393 PO; +ASPI-1497 PO
[2019-11-22] MEDS ORDERED: MORPHINE SULFATE 4 MG/ML CPJ (NOT FOR IM USE) IV STA (17:46)
[2019-11-22] MEDS ORDERED: SODIUM CHLORIDE 0.9% 1,000 ML IV ONE (17:46)
[2019-11-22] MEDS ORDERED: ONDANSETRON HCL 4MG/2ML INJ IV STA (17:46)
[2019-11-22] MEDS ORDERED: MECLIZINE 25MG TABLET PO ONE (18:00)
[2019-11-22 18:41] LABS: CLARITY URINE CLEAR (CLEAR); COLOR URINE YELLOW (YELLOW); KETONES URINE NEGATIVE (NEGATIVE); LEUKOCYTE ESTERASE URINE NEGATIVE (NEGATIVE); NITRITE URINE NEGATIVE (NEGATIVE); OCCULT BLOOD URINE NEGATIVE (NEGATIVE); PROTEIN URINE 2+ (NEGATIVE); SPECIFIC GRAVITY URINE 1.018 (1.005-1.030); UROBILINOGEN URINE 0.2 E.U./dL (0.2-1.0)
[2019-11-22] MEDS ORDERED: HYDRALAZINE 20MG/ML VIAL IV ONE (18:45)
[2019-11-22 18:47] LABS: BASOPHILS % 0.4 % (0.0-2.0); EOSINOPHILS % 0.5 % (0.0-5.0); HEMATOCRIT. 47.7 % (42.0-52.0); LYMPHOCYTES % 8.1 % (20.0-50.0); MEAN CORPUSCULAR HEMOGLOBIN 30.5 pg (28.0-32.0); MEAN PLATELET VOLUME 7.9 fl (7.4-10.4); MONOCYTES % 3.2 % (2.0-8.0); NEUTROPHILS % 87.8 % (40.0-76.0); PLATELET 252 x1000/uL (130-400); RED BLOOD CELL COUNT 5.24 mill/uL (4.7-6.1); RED CELL DISTRIBUTION WIDTH 13.9 % (11.6-14.6)
[2019-11-22 18:52] LABS: *AMPHETAMINES SCREEN URINE NEGATIVE (NEGATIVE); *BARBITURATES SCREEN URINE NEGATIVE (NEGATIVE); *BENZODIAZEPINES SCREEN URINE NEGATIVE (NEGATIVE); *COCAINE SCREEN URINE NEGATIVE (NEGATIVE)
[2019-11-22 18:53] LABS: CHLORIDE 108 mEq/L (98-107)
[2019-11-22 18:53] LABS: CANNABINOID URINE SCREEN PRESUMTIVE POSITIVE (NEGATIVE); METHADONE URINE SCREEN NEGATIVE (NEGATIVE); OPIATES URINE SCREEN PRESUMTIVE POSITIVE (NEGATIVE); PHENCYCLIDINE URINE SCREEN NEGATIVE (NEGATIVE)
[2019-11-22 18:54] LABS: PARTIAL THROMBOPLASTIN TIME 27.6 sec (23.4-31.0); PROTHROMBIN TIME 10.3 sec (9.6-11.0)
[2019-11-22 18:57] LABS: ETHANOL BLOOD < 10 mg/dL
[2019-11-22] MEDS ORDERED: HALOPERIDOL LACTATE 5MG/ML VIAL IM NR (19:30)
[2019-11-22] MEDS ORDERED: LABETALOL 5MG/ML SYR 20 MG/4 ML SYRINGE IV ONE (20:30)
[2019-11-22] MEDS ORDERED: LEVETIRACETAM 500MG TABLET PO ONE (21:15)
[2019-11-22] MEDS ORDERED: LISINOPRIL 20MG TABLET PO ONE (21:15)
[2019-11-22] MEDS ORDERED: HYDROCHLOROTHIAZIDE 25MG TABLET PO ONE (21:15)
[2019-11-23] MEDS ORDERED: CLONIDINE 0.2MG TABLET PO PRN (01:15)
[2019-11-23] MEDS: CLONIDINE 0.2MG TABLET PO SCH ×4 (01:34→12:59)
[2019-11-23] MEDS: LISINOPRIL 20MG TABLET PO SCH (10:30)
[2019-11-23] MEDS ORDERED: ACETAMINOPHEN 325MG TABLET PO PRN (13:00)
[2019-11-23] MEDS: KETOROLAC 30MG/ML VIAL IV PRN (13:11)
[2019-11-24] VITALS: BP 117/70
[2019-11-24] MEDS: KETOROLAC 30MG/ML VIAL IV PRN (01:13)
[2019-11-24 04:00] VITALS: BP 136/83
[2019-11-24 08:00] VITALS: BP 143/71
[2019-11-24] MEDS: LISINOPRIL 20MG TABLET PO SCH (08:54)
[2019-11-24] MEDS: LEVETIRACETAM 500MG TABLET PO SCH ×2 (08:58→21:40)
[2019-11-24] MEDS: ASPIRIN 81MG TABLET PO SCH (08:59)
[2019-11-24] MEDS ORDERED: HYDROCHLOROTHIAZIDE 25MG TABLET PO SCH (09:00)
[2019-11-24 09:01] LABS: BASOPHILS % 0.3 % (0.0-2.0); EOSINOPHILS % 0.2 % (0.0-5.0); HEMATOCRIT. 48.1 % (42.0-52.0); HEMOGLOBIN. 15.9 g/dL (14.0-18.0); LYMPHOCYTES % 13.1 % (20.0-50.0); MEAN CORPUSCULAR HEMOGLOBIN 30.1 pg (28.0-32.0); MEAN PLATELET VOLUME 8.2 fl (7.4-10.4); MONOCYTES % 5.8 % (2.0-8.0); NEUTROPHILS % 80.6 % (40.0-76.0); PLATELET 287 x1000/uL (130-400); RED BLOOD CELL COUNT 5.29 mill/uL (4.7-6.1); RED CELL DISTRIBUTION WIDTH 13.6 % (11.6-14.6)
[2019-11-24] MEDS ORDERED: AMLODIPINE 5MG TABLET PO SCH (10:00)
[2019-11-24] MEDS ORDERED: HYDRALAZINE 20MG/ML VIAL IV PRN (10:00)
[2019-11-24 12:00] VITALS: BP 112/68
[2019-11-24] MEDS: SODIUM CHLORIDE 0.9% 1,000 ML IV SCH (12:55)
[2019-11-24] MEDS ORDERED: HYDRALAZINE HCL 25MG TABLET PO SCH (13:00)
[2019-11-24] MEDS: ONDANSETRON HCL 4MG/2ML INJ IV PRN ×2 (14:18→18:00)
[2019-11-24 16:00] VITALS: BP 119/50
[2019-11-24] MEDS: MORPHINE SULFATE 2 MG/ML CPJ (NOT FOR IM USE) IV PRN ×2 (18:01→22:00)
[2019-11-24 20:00] VITALS: BP 190/96
[2019-11-24] MEDS ORDERED: CLONIDINE 0.1MG TABLET PO PRN (21:30)
[2019-11-25] VITALS: BP 128/62
[2019-11-25 00:46] LABS: BASOPHILS % 0.8 % (0.0-2.0); EOSINOPHILS % 0.4 % (0.0-5.0); HEMATOCRIT. 45.6 % (42.0-52.0); HEMOGLOBIN. 15.3 g/dL (14.0-18.0); LYMPHOCYTES % 15.4 % (20.0-50.0); MEAN CORPUSCULAR HEMOGLOBIN 30.2 pg (28.0-32.0); MEAN CORPUSCULAR VOLUME 90.3 fL (80.0-94.0); MONOCYTES % 6.4 % (2.0-8.0); PLATELET 269 x1000/uL (130-400); RED BLOOD CELL COUNT 5.05 mill/uL (4.7-6.1); RED CELL DISTRIBUTION WIDTH 13.7 % (11.6-14.6)
[2019-11-25 04:00] VITALS: BP 106/59
[2019-11-25] MEDS: SODIUM CHLORIDE 0.9% 1,000 ML IV SCH (06:24)
[2019-11-25 07:00] LABS: BASOPHILS % 0.5 % (0.0-2.0); EOSINOPHILS % 1.2 % (0.0-5.0); HEMATOCRIT. 44.7 % (42.0-52.0); HEMOGLOBIN. 14.8 g/dL (14.0-18.0); MEAN CORPUSCULAR HEMOGLOBIN 30.1 pg (28.0-32.0); MEAN CORPUSCULAR VOLUME 90.9 fL (80.0-94.0); MEAN PLATELET VOLUME 7.8 fl (7.4-10.4); MONOCYTES % 10.9 % (2.0-8.0); NEUTROPHILS % 61.4 % (40.0-76.0); PLATELET 252 x1000/uL (130-400); RED BLOOD CELL COUNT 4.92 mill/uL (4.7-6.1); RED CELL DISTRIBUTION WIDTH 13.6 % (11.6-14.6)
[2019-11-25 07:16] LABS: CHLORIDE 106 mEq/L (98-107)
[2019-11-25 07:31] LABS: LDL CHOLESTEROL 114 mg/dL (5-100)
[2019-11-25 07:32] LABS: HDL CHOLESTEROL 43 mg/dL (40-59)
[2019-11-25 08:00] VITALS: BP 126/58
[2019-11-25] MEDS: LEVETIRACETAM 500MG TABLET PO SCH ×2 (09:00→09:02)
[2019-11-25] MEDS: ASPIRIN 81MG TABLET PO SCH (09:02)
== END 2019-11-25 09:49 | disposition left against medical advice (07) | DRG 199 ==
LOC: ER 17:26 → EDBEDREQ 17:51 → 6WST 20:22 → EDBEDREQTM 20:28 → EDBEDREQ 20:28 → ENRESERV 11-23 20:44
PROVIDERS: ADMIT Internal Medicine; ATTEND Internal Medicine
DX: I16.0 Hypertensive urgency (principal); N17.0 Acute kidney failure with tubular necrosis; I24.8 Other forms of acute ischemic heart disease; I95.9 Hypotension, unspecified; E87.8 Other disorders of electrolyte and fluid balance, not elsewhere classified; F12.10 Cannabis abuse, uncomplicated; G40.909 Epilepsy, unspecified, not intractable, without status epilepticus; I10 Essential (primary) hypertension; Z82.49 Family history of ischemic heart disease and other diseases of the circulatory system; Z91.14 Patient's other noncompliance with medication regimen; Z79.899 Other long term (current) drug therapy; Z79.82 Long term (current) use of aspirin
CPT/HCPCS: 36415; 71045; 80048; 80053; 80061; 80305; 80320; 81003; 83880; 84484; 85025; 93005; 93306; 93970; 96361; 96372; 96374; 96375; 97162; 99285; C1893; J0360; J1630; J1885; J2270; J2405; J3490; J7030; J8597; G0480

== ENCOUNTER 2020-12-17 06:12 | Emergency (ER) | payer MEDICAID ==
[~2020-12-17] VITALS: Ht 162.6 cm; Wt 61.0 kg
[~2020-12-17 06:12] MED LIST changes: -ASPI-1497 PO; -HYDR25TA PO; -KEPP500 PO; -TRAM50TA94 PO
[2020-12-17] MEDS ORDERED: ONDANSETRON 4MG ODT PO STA (07:13)
[2020-12-17] MEDS ORDERED: HYDROCODONE/ACETAMINOPHEN 5/325MG TABLET PO STA (07:13)
[2020-12-17 07:57] LABS: BASOPHILS % 0.3 % (0.0-2.0); HEMATOCRIT. 45.7 % (42.0-52.0); HEMOGLOBIN. 15.8 g/dL (14.0-18.0); LYMPHOCYTES % 9.9 % (20.0-50.0); MEAN CORPUSCULAR HEMOGLOBIN 30.5 pg (28.0-32.0); MEAN CORPUSCULAR VOLUME 88.4 fL (80.0-94.0); MEAN PLATELET VOLUME 7.9 fl (7.4-10.4); MONOCYTES % 3.3 % (2.0-8.0); NEUTROPHILS % 86.5 % (40.0-76.0); PLATELET 278 x1000/uL (130-400); RED BLOOD CELL COUNT 5.17 mill/uL (4.7-6.1); RED CELL DISTRIBUTION WIDTH 13.3 % (11.6-14.6)
[2020-12-17 08:04] LABS: CHLORIDE 105 mEq/L (98-107)
[2020-12-17 08:18] LABS: PROTHROMBIN TIME 10.9 sec (9.6-11.0)
[2020-12-17 08:37] LABS: CLARITY URINE CLEAR (CLEAR); COLOR URINE YELLOW (YELLOW); KETONES URINE 2+ (NEGATIVE); LEUKOCYTE ESTERASE URINE NEGATIVE (NEGATIVE); NITRITE URINE NEGATIVE (NEGATIVE); OCCULT BLOOD URINE TRACE (NEGATIVE); PROTEIN URINE TRACE (NEGATIVE); SPECIFIC GRAVITY URINE 1.042 (1.005-1.030)
[2020-12-17] MEDS ORDERED: DICYCLOMINE HCL 10MG CAPSULE PO ONE (10:15)
[2020-12-17 10:41] VITALS: BP 141/93
== END 2020-12-17 10:44 | disposition home or self-care (01) ==
LOC: ER 06:12
DX: K52.9 Noninfective gastroenteritis and colitis, unspecified (principal); N43.3 Hydrocele, unspecified; I10 Essential (primary) hypertension
CPT/HCPCS: 36415; 71045; 74176; 76870; 80053; 81003; 83690; 84484; 85025; 85610; 93005; 93976; 99285; Q0162

== ENCOUNTER 2021-02-06 21:25 | Emergency (ER) | payer MEDICAID ==
[~2021-02-06] VITALS: Ht 162.6 cm; Wt 61.0 kg
[~2021-02-06 21:25] MED LIST changes: -LISI-604 PO; +LISI20TA31 PO
[2021-02-06] MEDS ORDERED: ONDANSETRON HCL 4MG/2ML INJ IV STA (22:26)
[2021-02-06] MEDS ORDERED: KETOROLAC 30MG/ML VIAL IV STA (22:26)
[2021-02-06] MEDS ORDERED: SODIUM CHLORIDE 0.9% 1,000 ML IV ONE (22:30)
[2021-02-06 22:43] LABS: BASOPHILS % 0.8 % (0.0-2.0); EOSINOPHILS % 0.6 % (0.0-5.0); HEMATOCRIT. 48.2 % (42.0-52.0); HEMOGLOBIN. 16.1 g/dL (14.0-18.0); MEAN CORPUSCULAR VOLUME 89.7 fL (80.0-94.0); MEAN PLATELET VOLUME 8.6 fl (7.4-10.4); MONOCYTES % 6.8 % (2.0-8.0); NEUTROPHILS % 69.8 % (40.0-76.0); PLATELET 320 x1000/uL (130-400); RED BLOOD CELL COUNT 5.37 mill/uL (4.7-6.1); RED CELL DISTRIBUTION WIDTH 13.3 % (11.6-14.6)
[2021-02-06 22:49] LABS: CHLORIDE 104 mEq/L (98-107)
[2021-02-06 22:57] LABS: ETHANOL BLOOD < 10 mg/dL
[2021-02-07] MEDS ORDERED: ONDA4TAB5 MT (00:11)
[2021-02-07] MEDS ORDERED: OMEP40CA12 MT (00:11)
[2021-02-07] MEDS ORDERED: LORAZEPAM 2MG/ML CPJ IV ONE (00:15)
[2021-02-07] MEDS ORDERED: HYDRALAZINE 20MG/ML VIAL IV ONE (00:15)
[2021-02-07 00:27] LABS: CLARITY URINE CLEAR (CLEAR); COLOR URINE YELLOW (YELLOW); KETONES URINE 2+ (NEGATIVE); LEUKOCYTE ESTERASE URINE NEGATIVE (NEGATIVE); NITRITE URINE NEGATIVE (NEGATIVE); OCCULT BLOOD URINE NEGATIVE (NEGATIVE); PH URINE 7.5 (4.5-8.0); PROTEIN URINE NEGATIVE (NEGATIVE); SPECIFIC GRAVITY URINE 1.015 (1.005-1.030); UROBILINOGEN URINE 0.2 E.U./dL (0.2-1.0)
[2021-02-07 00:28] VITALS: BP 148/83
[2021-02-07 00:45] LABS: *AMPHETAMINES SCREEN URINE NEGATIVE (NEGATIVE); *BARBITURATES SCREEN URINE NEGATIVE (NEGATIVE)
[2021-02-07 00:46] LABS: *BENZODIAZEPINES SCREEN URINE NEGATIVE (NEGATIVE); *COCAINE SCREEN URINE NEGATIVE (NEGATIVE); CANNABINOID URINE SCREEN PRESUMTIVE POSITIVE (NEGATIVE); METHADONE URINE SCREEN NEGATIVE (NEGATIVE); OPIATES URINE SCREEN PRESUMTIVE POSITIVE (NEGATIVE); PHENCYCLIDINE URINE SCREEN NEGATIVE (NEGATIVE)
== END 2021-02-07 00:20 | disposition home or self-care (01) ==
LOC: ER 21:25
DX: R10.9 Unspecified abdominal pain (principal); R11.2 Nausea with vomiting, unspecified; I10 Essential (primary) hypertension
CPT/HCPCS: 36415; 74176; 80053; 80305; 80320; 81003; 83690; 85025; 93005; 96374; 96375; 99285; J1885; J2405; J7030; G0480

== ENCOUNTER 2022-11-05 08:08 | Emergency (ER) | payer MEDICAID ==
[~2022-11-05] VITALS: Ht 167.6 cm; Wt 69.0 kg
[~2022-11-05 08:08] MED LIST changes: +OMEP40CA20 MT; +ONDA4TAB5 MT
[2022-11-05] MEDS ORDERED: KETOROLAC 30MG/ML VIAL IV STA (08:17)
[2022-11-05] MEDS ORDERED: ONDANSETRON HCL 4MG/2ML INJ IV STA (08:17)
[2022-11-05 08:30] VITALS: BP 212/120
[2022-11-05 08:57] LABS: BASOPHILS % 1.2 % (0.0-2.0); EOSINOPHILS % 1.1 % (0.0-5.0); HEMATOCRIT. 47.2 % (42.0-52.0); HEMOGLOBIN. 15.6 g/dL (14.0-18.0); LYMPHOCYTES % 20.6 % (20.0-50.0); MEAN CORPUSCULAR HEMOGLOBIN 30.4 pg (28.0-32.0); MEAN CORPUSCULAR VOLUME 92.2 fL (80.0-94.0); MONOCYTES % 7.4 % (2.0-8.0); NEUTROPHILS % 69.7 % (40.0-76.0); PLATELET 276 x1000/uL (130-400); RED BLOOD CELL COUNT 5.12 mill/uL (4.7-6.1); RED CELL DISTRIBUTION WIDTH 13.9 % (11.6-14.6)
[2022-11-05] MEDS ORDERED: ACETAMINOPHEN 325MG TABLET PO ONE (09:30)
[2022-11-05 11:07] LABS: PROTHROMBIN TIME 10.7 sec (9.6-11.0)
[2022-11-05 11:10] LABS: CHLORIDE 111 mEq/L (98-107)
[2022-11-05] MEDS ORDERED: TOPUD PO (11:36)
[2022-11-05] MEDS ORDERED: ONDA4TAB50 PO (11:36)
== END 2022-11-05 13:30 | disposition home or self-care (01) ==
LOC: ER 08:08
DX: R10.9 Unspecified abdominal pain (principal); I10 Essential (primary) hypertension; R56.9 Unspecified convulsions
CPT/HCPCS: 36415; 74176; 80053; 82962; 83690; 85025; 85610; 96374; 96375; 99284; J1885; J2405

== ENCOUNTER 2023-02-13 23:02 | Emergency (ER) | payer MEDICAID ==
[~2023-02-13] VITALS: Ht 170.2 cm; Wt 64.0 kg
[~2023-02-13 23:02] MED LIST changes: +ONDA4TAB50 PO; +TOPUD PO
[2023-02-13 23:09] VITALS: BP 132/84
== END 2023-02-13 23:44 | disposition home or self-care (01) ==
LOC: ER 23:02
DX: K31.89 Other diseases of stomach and duodenum (principal); Z76.0 Encounter for issue of repeat prescription; I10 Essential (primary) hypertension; R56.9 Unspecified convulsions; Z59.00 Homelessness unspecified
CPT/HCPCS: 99281

== ENCOUNTER 2024-01-26 06:45 | Emergency (ER) | payer MEDICAID ==
[~2024-01-26] VITALS: Ht 165.1 cm; Wt 68.0 kg
[~2024-01-26 06:45] MED LIST changes: +KEPP500 PO
[2024-01-26 06:48] VITALS: O2SAT 100
[2024-01-26 07:33] LABS: BASOPHILS % 0.6 % (0.0-2.0); EOSINOPHILS % 2.3 % (0.0-5.0); HEMATOCRIT. 47.4 % (42.0-52.0); HEMOGLOBIN. 15.6 g/dL (14.0-18.0); LYMPHOCYTES % 17.7 % (20.0-50.0); MEAN CORPUSCULAR HEMOGLOBIN 30.8 pg (28.0-32.0); MEAN CORPUSCULAR HGB CONC 32.9 g/dL (31.0-37.0); MEAN CORPUSCULAR VOLUME 93.7 fL (80.0-94.0); MEAN PLATELET VOLUME 7.8 fl (7.4-10.4); MONOCYTES % 7.7 % (2.0-8.0); NEUTROPHILS % 71.7 % (40.0-76.0); PLATELET 258 x1000/uL (130-400); RED BLOOD CELL COUNT 5.05 mill/uL (4.7-6.1); RED CELL DISTRIBUTION WIDTH 14.1 % (11.6-14.6); WHITE BLOOD COUNT 8.2 x1000/uL (4.5-11.0)
[2024-01-26] MEDS: ONDANSETRON HCL 4MG/2ML INJ IV STA (07:36)
[2024-01-26] MEDS: KETOROLAC 30MG/ML VIAL IV STA (07:36)
[2024-01-26] MEDS: FAMOTIDINE 20MG/2ML VIAL IV STA (07:36)
[2024-01-26 07:42] LABS: INR 0.9; PROTHROMBIN TIME 10.3 sec (9.6-11.0)
[2024-01-26 08:01] LABS: ALANINE AMINOTRANSFERASE 14 IU/L (10-49); ALBUMIN 4.8 g/dL (3.2-4.8); ASPARTATE AMINOTRANSFERASE 27 IU/L (<34); BILIRUBIN TOTAL 0.7 mg/dL (0.1-1.0); CALCIUM 8.8 mg/dL (8.7-10.4); CARBON DIOXIDE 21 mEq/L (21-32); CHLORIDE 110 mEq/L (98-107); GLUCOSE 109 mg/dL (70-105); POTASSIUM 4.1 mEq/L (3.5-5.1); PROTEIN TOTAL 7.4 g/dL (6.0-8.3); SODIUM 137 mEq/L (136-145); UREA NITROGEN BLOOD 14 mg/dL (9-23)
[2024-01-26] MEDS: MORPHINE SULFATE 4 MG/ML CPJ (NOT FOR IM USE) IV ONE ×2 (08:12→11:07)
[2024-01-26] MEDS: LEVETIRACETAM 1000MG PREMIX 100 ML IV ONE (08:48)
[2024-01-26] MEDS: HYDRALAZINE 20MG/ML VIAL IV ONE (08:49)
[2024-01-26 09:26] LABS: CLARITY URINE CLEAR (CLEAR); COLOR URINE YELLOW (YELLOW); GLUCOSE URINE NEGATIVE (NEGATIVE); KETONES URINE NEGATIVE (NEGATIVE); LEUKOCYTE ESTERASE URINE NEGATIVE (NEGATIVE); NITRITE URINE NEGATIVE (NEGATIVE); OCCULT BLOOD URINE NEGATIVE (NEGATIVE); PH URINE 5.5 (4.5-8.0); PROTEIN URINE NEGATIVE (NEGATIVE); SPECIFIC GRAVITY URINE 1.017 (1.005-1.030); UROBILINOGEN URINE 0.2 E.U./dL (0.2-1.0)
[2024-01-26] MEDS: LORAZEPAM 2MG/ML INJ IM ONE (09:27)
[2024-01-26] MEDS: ACETAMINOPHEN 325MG TABLET PO ONE (10:27)
[2024-01-26] MEDS: HYDRALAZINE HCL 50MG TABLET PO ONE (10:28)
[2024-01-26] MEDS: HYDRALAZINE HCL 25MG TABLET PO NR (10:44)
[2024-01-26] MEDS: DICYCLOMINE 10 MG/5 ML ORAL SYR PO STA (11:18)
[2024-01-26] MEDS: LISINOPRIL 40MG TABLET PO ONE (11:54)
[2024-01-26 12:03] VITALS: BP 171/96; PULSE 80; RESP 17; TEMP 98.4
== END 2024-01-26 12:11 | disposition short-term general hospital (02) ==
LOC: ER 06:45 → EDBEDREQ 11:44 → EDBEDREQTM 11:44 → CANBEDREQ 12:04 → ER 12:11
DX: R10.9 Unspecified abdominal pain (principal); R56.9 Unspecified convulsions; R11.10 Vomiting, unspecified; I10 Essential (primary) hypertension; Z79.899 Other long term (current) drug therapy
CPT/HCPCS: 80053; 81003; 83690; 85025; 85610; 36415; 70450; 96365; 96372; 96375; 96376; 99285; J1953; J3490; J0360; J1885; J2060; J2405; J2270; Z7610

== ENCOUNTER 2025-06-25 21:54 | Emergency (ER) | payer MEDICAID ==
[~2025-06-25] VITALS: Ht 162.6 cm; Wt 61.0 kg
[2025-06-25 22:02] VITALS: BP 169/88; TEMP 36.7; O2SAT 99
[2025-06-25 22:06] VITALS: PULSE 71; RESP 20; O2SAT 98
== END 2025-06-25 23:16 | disposition left against medical advice (07) ==
LOC: ER 22:52
DX: M79.641 Pain in right hand (principal); Z53.21 Procedure and treatment not carried out due to patient leaving prior to being seen by health care provider
CPT/HCPCS: 73130